=== PATIENT | female | born 1970 | race African-American/Black ===

== ENCOUNTER 2017-08-10 09:14 | Emergency (ER) | payer OTHER ==
[~2017-08-10] VITALS: Ht 160 cm; Wt 80.0 kg
[~2017-08-10 09:14] MED LIST: AMLODIPINE PO; ASPIRIN PO; HCTZ PO; HYDRALAZINE PO; METOPROLOL PO
[2017-08-10] MEDS ORDERED: LOSA25TA12 PO (09:19)
[2017-08-10] MEDS ORDERED: GLIP5TAB12 PO (09:19)
[2017-08-10] MEDS ORDERED: METF500T4 PO (09:19)
[2017-08-10] MEDS ORDERED: GABA-529 PO (09:19)
[2017-08-10] MEDS ORDERED: SODIUM CHLORIDE 0.9% 1,000 ML IV ONE (09:52)
[2017-08-10] MEDS ORDERED: ASPIRIN 81MG TABLET PO ONE (10:00)
[2017-08-10] MEDS ORDERED: LABETALOL HCL 20MG/4ML CARPUJECT IV ONE (10:00)
[2017-08-10 10:26] LABS: BASOPHILS % 0.2 % (0.0-2.0); EOSINOPHILS % 1.2 % (0.0-5.0); HEMATOCRIT. 39.2 % (36.0-48.0); HEMOGLOBIN. 13.2 g/dL (12.0-16.0); LYMPHOCYTES % 27.8 % (20.0-50.0); MEAN CORPUSCULAR HEMOGLOBIN 26.8 pg (28.0-32.0); MEAN CORPUSCULAR VOLUME 79.9 fL (81.0-99.0); MEAN PLATELET VOLUME 7.6 fl (7.4-10.4); MONOCYTES % 5.5 % (2.0-8.0); NEUTROPHILS % 65.3 % (40.0-76.0); PLATELET 335 x1000/uL (130-400); RED BLOOD CELL COUNT 4.91 mill/uL (4.2-5.4); RED CELL DISTRIBUTION WIDTH 14.5 % (11.6-14.6)
[2017-08-10 10:34] LABS: CHLORIDE 97 mEq/L (98-107)
[2017-08-10] MEDS ORDERED: LABETALOL 5MG/ML SYR 20 MG/4 ML SYRINGE IV ONE (10:34)
[2017-08-10] MEDS ORDERED: LABETALOL HCL 100MG TABLET PO ONE (13:15)
[2017-08-10] MEDS ORDERED: KETOROLAC 30MG/ML VIAL IV ONE (13:15)
[2017-08-10 14:29] VITALS: BP 152/114
== END 2017-08-10 14:32 | disposition home or self-care (01) ==
LOC: ER 09:14
DX: I10 Essential (primary) hypertension (principal); E11.65 Type 2 diabetes mellitus with hyperglycemia; E87.6 Hypokalemia; Z86.73 Personal history of transient ischemic attack (TIA), and cerebral infarction without residual deficits; Z79.84 Long term (current) use of oral hypoglycemic drugs; Z88.8 Allergy status to other drugs, medicaments and biological substances; Z79.82 Long term (current) use of aspirin
CPT/HCPCS: 36415; 71045; 80053; 83880; 84484; 85025; 85610; 93005; 96361; 96374; 96375; 99285; J1885; J3490; J7030